=== PATIENT | male | born 1960 | race Caucasian/White ===

== ENCOUNTER 2018-04-06 09:57 | Emergency (ER) | payer BC ==
--- NOTE | 2018-04-06 10:42 | UC ---
Lower Extremity/Ankle HPI - HPI Summary HPI Summary: 57 year old male with history of gout presents with complaint of left great toe pain similar to his past gout flares that started yesterday. Mild redness, swelling, and increased warmth. States pain is a constant throbbing that worsens with ambulation and weight bearing. States he has taken colchine in the past for his flares. - History of Current Complaint Chief Complaint: UCLowerExtremity Stated Complaint: FOOT PAIN Time Seen by Provider: 04/06/18 10:35 Hx Obtained From: Patient Pain Intensity: 7 - Allergies/Home Medications Allergies/Adverse Reactions: Allergies Allergy/AdvReac Type Severity Reaction Status Date / Time No Known Allergies Allergy Verified 04/06/18 10:14 Home Medications: Home Medications Atorvastatin* [Lipitor 10 MG*] 10 mg PO DAILY 04/06/18 [History Confirmed ] Empagliflozin [Jardiance] 1 tab PO DAILY 04/06/18 [History Confirmed 04/06/18] Insulin Degludec [Tresiba] 1 mg IM DAILY 04/06/18 [History Confirmed 04/06/18] Lisinopril [Zestril 20 MG-] 20 mg PO DAILY 04/06/18 [History Confirmed 04/06/18] metFORMIN* [Glucophage 1000 MG TAB *] 1 mg PO BID 04/06/18 [History Confirmed ] PMH/Surg Hx/FS Hx/Imm Hx - Additional Past Medical History Additional PMH: Gout Previously Healthy: Yes Endocrine History: Diabetes, Dyslipidemia Cardiovascular History: Hypertension - Surgical History Surgical History: Yes Surgery Procedure, Year, and Place: orthopedic - Family History Known Family History: Positive: Cardiac Disease, Hypertension, Diabetes - Social History Occupation: Employed Full-time Lives: With Family Alcohol Use: Occasionally Substance Use Type: None Smoking Status (MU): Never Smoked Tobacco Review of Systems All Other Systems Reviewed And Are Negative: Yes Constitutional: Negative: Fever, Chills Respiratory: Positive: Negative Cardiovascular: Positive: Negative Gastrointestinal: Positive: Negative Genitourinary: Positive: Negative Musculoskeletal: Positive: Other: - See HPI Neurological: Positive: Negative Is Patient Immunocompromised?: No Physical Exam - Summary Physical Exam Summary: GENERAL APPEARANCE: Well developed, well nourished, alert and cooperative, and appears to be in no acute distress. CARDIAC: Normal S1 and S2. No S3, S4 or murmurs. Rhythm is regular. There is no peripheral edema, cyanosis or pallor. Extremities are warm and well perfused. Capillary refill is less than 2 seconds. LUNGS: Clear to auscultation without rales, rhonchi, wheezing or diminished breath sounds. ABDOMEN: Positive bowel sounds. Soft, nondistended, nontender. No guarding or rebound. No masses or hepatosplenomegally. MUSKULOSKELETAL: Normal muscular development. Normal gait. BACK: Examination of the spine reveals normal gait and posture, no spinal deformity or tenderness, decreased range of motion or muscular spasm. EXTREMITIES: Tenderness, mild erythema, and swelling noted at the MTP of the the left great toe. Peripheral pulses intact. NEUROLOGICAL: Strength and sensation symmetric and intact. SKIN: Skin normal color, texture and turgor with no lesions or eruptions. Triage Information Reviewed: Yes Vital Signs: Initial Vital Signs Temp 98 F 04/06/18 10:11 Pulse 81 04/06/18 10:11 Resp 17 04/06/18 10:11 BP 151/101 04/06/18 10:11 Pulse Ox 100 04/06/18 10:11 Vital Signs Reviewed: Yes Lower Extremity Course/Dx - Course Course Of Treatment: 57 year old male with history of gout presents with complaint of left great toe pain similar to his past gout flares that started yesterday. Mild redness, swelling, and increased warmth. States pain is a constant throbbing that worsens with ambulation and weight bearing. States he has taken colchine in the past for his flares. Afebrile. Hypertensive other stable vital signs. Exam revealed tenderness, mild erythema, and swelling at the MTP of the left great toe consistent with gout. Will treat with course of colchine since this has worked well for patient in the past. He is to follow up with his primary care provider if symptoms persist. Anticipatory guidance and warning symptoms reviewed. Verbalizes understanding and agrees with POC. - Differential Dx/Diagnosis Differential Diagnosis/HQI/PQRI: Arthritis, Contusion, Fracture (Closed), Gout, Infection, Tendonitis Provider Diagnosis: Gout attack Discharge - Sign-Out/Discharge Documenting (check all that apply): Patient Departure All imaging exams completed and their final reports reviewed: No Studies - Discharge Plan Condition: Stable Disposition: HOME Prescriptions: Colchicine [Mitigare] 0.6 mg PO BID #11 capsule Patient Education Materials: Low Purine Diet (ED), Gout (ED) Referrals: No Primary Care Phys,NOPCP [Primary Care Provider] - Additional Instructions: Take colchicine 0.6 mg 2 capsule now then 1 capsule an hour later. Starting tomorrow you may take 1 capsule twice a day as needed for pain. I have provided you with information on a purine-free diet that can help prevent gout attacks. Follow up with your primary care provider as needed. - Billing Disposition and Condition Condition: STABLE Disposition: Home - Attestation Statements Provider Attestation: Per institutional requirements, I have reviewed the chart, however, I was not consulted specifically or made aware of this patient by the midlevel provider. I did not personally evaluate, interact with , or disposition this patient.
== END 2018-04-06 10:59 | disposition home or self-care (01) ==
LOC: UCEAST 09:57
DX: M10.072 Idiopathic gout, left ankle and foot (principal); E11.9 Type 2 diabetes mellitus without complications; Z79.4 Long term (current) use of insulin; Z79.84 Long term (current) use of oral hypoglycemic drugs; E78.5 Hyperlipidemia, unspecified; I10 Essential (primary) hypertension
CPT/HCPCS: 99202; G0463